=== PATIENT | male | born 1940 | race African-American/Black ===

== ENCOUNTER 2018-11-02 08:19 | Outpatient (CLI) | payer BC ==
[2018-11-02] MEDS ORDERED: BARIUM SULFATE 135 ML SUSP.RECON (E-Z-HD) PO ONE (08:55)
== END 2018-11-02 20:11 | disposition home or self-care (01) ==
LOC: SRD 08:19
PROVIDERS: ATTEND Family Medicine
DX: R13.10 Dysphagia, unspecified (principal)
CPT/HCPCS: 74245-TC